=== PATIENT | male | born 1990 | race Caucasian/White ===

== ENCOUNTER 2020-11-21 21:11 | Emergency (ER) | payer OTHER ==
[~2020-11-21 21:11] MED LIST: BACTRIM DS TAB1 EACH PO
[2020-11-21 22:11] LABS: BILIRUBIN NEGATIVE (NEGATIVE); BLOOD 1+ Ery/uL (NEGATIVE); CLARITY CLEAR (CLEAR); COLOR YELLOW (YELLOW); GLUCOSE (U) NORMAL (NORMAL); LEUKOCYTES NEGATIVE Leu/uL (NEGATIVE); NITRITE NEGATIVE (NEGATIVE); PROTEIN NEGATIVE (NEGATIVE); SPECIFIC GRAVITY 1.015 (1.001-1.030); UROBILINOGEN 0.2 mg/dL (0.2-1.0)
[2020-11-21 22:11] LABS: BASOPHIL 0.4 % (0-2); EOSINOPHIL 0.9 % (0-5); HCT 43.5 % (42.0-52.0); HGB 15.1 g/dl (13.2-18.0); LYMPHOCYTE 15.6 % (15-48); MCH 32.6 pg (25.0-31.0); MCHC 34.7 g/dL (32.0-36.0); MONOCYTE 5.2 % (0-12); MPV 9.4 fL (6.0-9.5); NEUTROPHIL 77.4 % (41-80); NRBC 0; PLT 267 K/uL (150-400); RBC 4.63 M/uL (4.70-6.00); RDW 12.7 % (11.5-14.0); WBC 19.9 K/uL (4.0-10.5)
[2020-11-21 22:19] LABS: CALCIUM OXALATE CRYSTALS TRACE; MUCOUS TRACE; SQUAMOUS EPITHELIAL CELLS RARE
[2020-11-21 22:23] LABS: BUN/CREAT RATIO (CALC) 17.6 RATIO; CREATININE 0.91 mg/dL (0.67-1.17); POTASSIUM 3.9 mmol/L (3.5-5.1)
[2020-11-21] MEDS ORDERED: NORCO 5-325 TA1 EACH PO (23:10)
[2020-11-21] MEDS ORDERED: BACTRIM DS TAB1 EACH PO (23:10)
== END 2020-11-21 23:28 | disposition home or self-care (01) ==
LOC: FER 21:11
PROVIDERS: Emergency Medicine
DX: R10.32 Left lower quadrant pain (principal); D72.829 Elevated white blood cell count, unspecified; N20.0 Calculus of kidney; F17.210 Nicotine dependence, cigarettes, uncomplicated; Z98.890 Other specified postprocedural states
CPT/HCPCS: 36415; 80048; 81001; 85025; J1885; J2405